=== PATIENT | female | born 1980 | race Caucasian/White ===

== ENCOUNTER 2017-04-18 14:53 | Emergency (ER) | payer OTHER ==
[~2017-04-18] VITALS: Ht 162.6 cm; Wt 68.1 kg
[~2017-04-18 14:53] MED LIST: COLACE100 MG PO; Colace PO; ENDOCET 5-3251 EACH PO; Feosol PO; MOTRIN800 MG PO; Motrin PO; NOHOMEMEDS
[2017-04-18 15:49] VITALS: BP 136/92
[2017-04-18] MEDS ORDERED: LIDODERM 5% P1 PATCH TD (17:22)
[2017-04-18] MEDS ORDERED: FLEXERIL10 MG PO (17:22)
== END 2017-04-18 17:43 | disposition home or self-care (01) ==
LOC: EME 14:53
DX: S16.1XXA Strain of muscle, fascia and tendon at neck level, initial encounter (principal); V59.50XA Passenger in pick-up truck or van injured in collision with unspecified motor vehicles in traffic accident, initial encounter; Y92.410 Unspecified street and highway as the place of occurrence of the external cause; F17.200 Nicotine dependence, unspecified, uncomplicated